=== PATIENT | female | born 1985 | race Two or more races ===

== ENCOUNTER 2024-03-08 10:01 | Outpatient (CLI) | payer OTHER | END 2024-03-08 10:02 | disposition home or self-care (01) | LOC: PRENATAL 10:01 | PROVIDERS: ATTEND Obstetrics & Gynecology Maternal & Fetal Medicine | DX: O44.00 Complete placenta previa NOS or without hemorrhage, unspecified trimester (principal); O99.019 Anemia complicating pregnancy, unspecified trimester; Z3A.22 22 weeks gestation of pregnancy ==

== ENCOUNTER → 2024-05-18 09:27 | Outpatient (CLI) | payer OTHER | END | disposition home or self-care (01) | LOC: PRENATAL 09:27 | PROVIDERS: ATTEND Obstetrics & Gynecology Maternal & Fetal Medicine | DX: O26.849 Uterine size-date discrepancy, unspecified trimester (principal); O36.8199 Decreased fetal movements, unspecified trimester, other fetus; O99.019 Anemia complicating pregnancy, unspecified trimester; Z3A.32 32 weeks gestation of pregnancy ==

== ENCOUNTER 2024-06-15 19:10 | Inpatient (IN) | payer OTHER ==
[~2024-06-15] VITALS: Ht 154.9 cm; Wt 71.7 kg
[2024-06-15 20:13] VITALS: BP 107/68
[2024-06-15] MEDS ORDERED: PRENATAL TABLE1 EAC1 PO (20:33)
[2024-06-15 20:41] LABS: HEMATOCRIT 29.1 % (36.0-45.00); MEAN CELL VOLUME 85.2 fL (80.00-100.00); MEAN CORPUSCULAR HEMOGLOBIN 29.4 pg (27.00-32.0); MEAN CORPUSCULAR HGB CONC 34.5 g/dl (32.0-36.0); PLATELET COUNT 197 K/uL (150-450); RED BLOOD COUNT 3.42 M/uL (4.00-6.00); RED CELL DISTRIBUTION WIDTH 13.1 % (11.5-14.5)
[2024-06-15 20:45] LABS: PH,URINE 6.5 (5.0-8.0); URINE APPEARANCE Clear; URINE BILIRRUBIN Negative (NEGATIVE); URINE BLOOD Negative; URINE COLOR Yellow; URINE GLUCOSE Negative (NEGATIVE); URINE KETONE Negative (NEGATIVE); URINE LEUKOCYTE Small; URINE NITRATE Negative; URINE PROTEIN Negative (NEGATIVE)
[2024-06-15] MEDS ORDERED: BETAMETHASONE ACETATE,SOD PHOS 30 MG/5 ML ML IM SCH (20:45)
[2024-06-15] MEDS ORDERED: RINGERS SOLUTION,LACTATED 1,000 ML IV SCH (20:45)
[2024-06-15 20:48] LABS: URINE BACTERIA 1314.5 uL (0.0-1933); URINE EPITHELIAL CELLS 37.5 uL (0.0-38.8); URINE WBC 28.1 uL (0.0-23.2)
[2024-06-15 20:54] LABS: URINE RBC 1.9 uL (0.0-20.8)
[2024-06-15 23:39] VITALS: BP 113/63
[2024-06-16 06:16] VITALS: BP 109/63; O2SAT 99
[2024-06-16 11:55] VITALS: BP 99/62; O2SAT 98
[2024-06-16 16:15] VITALS: BP 124/67
[2024-06-16 16:34] VITALS: BP 124/67
[2024-06-16 20:28] VITALS: BP 98/59
[2024-06-16 23:18] VITALS: BP 105/98
[2024-06-17 03:45] VITALS: BP 110/65; BP 144/81
[2024-06-17 06:03] VITALS: BP 97/60; O2SAT 98
[2024-06-17 11:02] VITALS: BP 108/62; O2SAT 99
[2024-06-17 16:14] VITALS: BP 115/64
== END 2024-06-17 19:35 | disposition home or self-care (01) | DRG 833 ==
LOC: OBS/DEL 19:10 → LDR 06-16 17:16 → OBS/DEL 06-16 17:16 → LDR 06-17 19:35
PROVIDERS: ADMIT Obstetrics & Gynecology Obstetrics; ATTEND Obstetrics & Gynecology Obstetrics
PROC: 4A1HXCZ Monitoring of Products of Conception, Cardiac Rate, External Approach (ICD-10-PCS; principal; 2024-06-16)
DX: O60.03 Preterm labor without delivery, third trimester (principal); Z3A.36 36 weeks gestation of pregnancy; Z20.822 Contact with and (suspected) exposure to COVID-19

== ENCOUNTER 2024-07-01 16:57 | Inpatient (IN) | payer OTHER ==
[~2024-07-01] VITALS: Ht 154.9 cm; Wt 70.8 kg
[~2024-07-01 16:57] MED LIST: PRENATAL TABLE1 EAC1 PO
[2024-07-01 17:06] VITALS: BP 124/69
[2024-07-01] MEDS ORDERED: METHYLERGONOVINE MALEATE 0.2 MG/ML AMPUL ONE (17:21)
[2024-07-01 18:01] LABS: HEMATOCRIT 30.7 % (36.0-45.00); HEMOGLOBIN 10.3 g/dL (12.0-15.00); MEAN CELL VOLUME 85.1 fL (80.00-100.00); MEAN CORPUSCULAR HEMOGLOBIN 28.5 pg (27.00-32.0); MEAN CORPUSCULAR HGB CONC 33.5 g/dl (32.0-36.0); PLATELET COUNT 233 K/uL (150-450); RED CELL DISTRIBUTION WIDTH 13.8 % (11.5-14.5)
[2024-07-01] MEDS ORDERED: AMPICILLIN SODIUM 2,000 MG VIAL ONE (18:18)
[2024-07-01 18:21] LABS: PH,URINE 6.5 (5.0-8.0); URINE APPEARANCE Cloudy; URINE BILIRRUBIN Negative (NEGATIVE); URINE BLOOD Large; URINE COLOR Yellow; URINE GLUCOSE Negative (NEGATIVE); URINE KETONE Trace (NEGATIVE); URINE LEUKOCYTE Small; URINE NITRATE Negative; URINE PROTEIN Trace (NEGATIVE)
[2024-07-01 18:28] LABS: URINE BACTERIA 6477.1 uL (0.0-1933); URINE EPITHELIAL CELLS 126.3 uL (0.0-38.8); URINE WBC 119.6 uL (0.0-23.2)
[2024-07-01] MEDS ORDERED: AMPICILLIN SODIUM 2,000 MG VIAL IV ONE (18:30)
[2024-07-01 18:33] LABS: INR < 0.93; PARTIAL THROMBOPLASTIN TIME 23.3 SECONDS (22.0-34.0); PROTHROMBIN TIME 9.8 SECONDS (9.0-11.5)
[2024-07-01 19:06] LABS: URINE CAST 1.17 uL (0.0-1.40)
[2024-07-01] MEDS ORDERED: AMPICILLIN SODIUM 1,000 MG VIAL IV SCH ×2 (20:00→21:00)
[2024-07-01 23:16] VITALS: BP 138/85
[2024-07-02 03:22] VITALS: BP 115/67
[2024-07-02 07:20] VITALS: BP 104/55
[2024-07-02 12:00] VITALS: BP 105/50
[2024-07-02] MEDS ORDERED: MISOPROSTOL 25 MCG/4 ML GEL.W.APPL ONE (12:13)
[2024-07-02] MEDS ORDERED: MISOPROSTOL 50 MCG TABLET VAG ONE (12:15)
[2024-07-02] MEDS ORDERED: MISOPROSTOL 25 MCG/4 ML GEL.W.APPL VAG ONE ×2 (13:45→21:00)
[2024-07-02 14:33] VITALS: BP 123/67
[2024-07-02 15:33] VITALS: BP 123/67
[2024-07-02 23:25] VITALS: BP 121/68
[2024-07-02] MEDS ORDERED: MEPERIDINE HCL/PF 50 MG/ML VIAL IV ONE (23:45)
[2024-07-02] MEDS ORDERED: PROMETHAZINE HCL 25 MG/ML AMPUL IV ONE (23:45)
[2024-07-03 03:00] VITALS: BP 129/71
[2024-07-03] MEDS ORDERED: PROMETHAZINE HCL 25 MG/ML AMPUL IV ONE (04:00)
[2024-07-03] MEDS ORDERED: MEPERIDINE HCL/PF 50 MG/ML VIAL IV ONE (04:00)
[2024-07-03 07:50] VITALS: BP 114/69
[2024-07-03] MEDS ORDERED: OXYTOCIN 20 UNITS/1000ML RL PIGGYBAG IV ONE (08:45)
[2024-07-03] MEDS ORDERED: MEPERIDINE HCL/PF 50 MG/ML VIAL IV PRN (08:45)
[2024-07-03] MEDS ORDERED: ERYTHROMYCIN BASE OPHT 1GM EACH TUBE OP ONE (08:45)
[2024-07-03] MEDS ORDERED: PROMETHAZINE HCL 25 MG/ML AMPUL IV PRN (08:45)
[2024-07-03] MEDS ORDERED: LIDOCAINE HCL 1% 10ML VIAL ONE (08:46)
[2024-07-03] MEDS ORDERED: CHLORHEXIDINE GLUCONATE 120 ML BOTTLE TOP ONE (08:46)
[2024-07-03] MEDS ORDERED: OXYTOCIN 500 ML IV SCH (11:30)
[2024-07-03 12:00] VITALS: BP 125/82
[2024-07-03] MEDS ORDERED: IBUprofen 400 MG TABLET PO PRN (15:00)
[2024-07-03] MEDS ORDERED: OXYTOCIN 1,000 ML IV SCH (15:00)
[2024-07-03] MEDS ORDERED: CHLORHEXIDINE GLUCONATE 120 ML BOTTLE TP ONE (15:00)
[2024-07-03 16:23] VITALS: BP 122/71
[2024-07-03 20:08] VITALS: BP 113/64
[2024-07-04] VITALS: BP 111/65
[2024-07-04 08:00] VITALS: BP 118/70
[2024-07-04 17:23] VITALS: BP 106/66
[2024-07-05 01:00] VITALS: BP 119/77
[2024-07-05 08:09] VITALS: BP 126/79
== END 2024-07-05 15:35 | disposition home or self-care (01) | DRG 807 ==
LOC: LDR 16:57 → OB/GYN 07-03 15:46
PROVIDERS: ADMIT Obstetrics & Gynecology Obstetrics; ATTEND Obstetrics & Gynecology Obstetrics
PROC: 4A1HXCZ Monitoring of Products of Conception, Cardiac Rate, External Approach (ICD-10-PCS; 2024-07-01)
PROC: 3E0P7VZ Introduction of Hormone into Female Reproductive, Via Natural or Artificial Opening (ICD-10-PCS; 2024-07-02)
PROC: 10E0XZZ Delivery of Products of Conception, External Approach (ICD-10-PCS; principal; 2024-07-03)
PROC: 3E033VJ Introduction of Other Hormone into Peripheral Vein, Percutaneous Approach (ICD-10-PCS; 2024-07-03)
DX: O69.81X0 Labor and delivery complicated by cord around neck, without compression, not applicable or unspecified (principal); Z37.0 Single live birth; Z3A.39 39 weeks gestation of pregnancy; Z20.822 Contact with and (suspected) exposure to COVID-19